=== PATIENT | male | born 1995 | race Caucasian/White ===

== ENCOUNTER 2021-10-20 23:21 | Emergency (ER) | payer SELFPAY ==
[~2021-10-20] VITALS: Ht 188 cm; Wt 90.9 kg
[~2021-10-20 23:21] MED LIST: SULF1TAB24 PO
[2021-10-21] VITALS: BP 138/88
--- NOTE | 2021-10-21 00:05 | PHYS DOC ---
Past Medical History Past Medical History: No Pertinent History (MILAGROS GREER APRN) Past Surgical History: No Surgical History (MILAGROS GREER APRN) Smoking Status: Never Smoker Alcohol Use: None Drug Use: None (MILAGROS GREER APRN) General Adult EDM: Chief Complaint: SORE THROAT HPI: HPI: Patient is a 26-year-old male who presents to the emergency department for 2-day history of sore throat, nonproductive cough and shortness of breath that started. Patient denies any treatment prior to arrival, fevers, loss of taste or smell or vomiting. Patient reports that his stepson was positive for strep. (MILAGROS GREER APRN) Review of Systems: Review of Systems: Constitutional: See HPI HENT: See HPI Respiratory: See HPI GI: See HPI (MILAGROS GREER APRN) Heart Score: C/O Chest Pain: N/A Risk Factors: Risk Factors: DM, Current or recent (<one month) smoker, HTN, HLP, family history of CAD, obesity. Risk Scores: Score 0 - 3: 2.5% MACE over next 6 weeks - Discharge Home Score 4 - 6: 20.3% MACE over next 6 weeks - Admit for Clinical Observation Score 7 - 10: 72.7% MACE over next 6 weeks - Early Invasive Strategies (MILAGROS GREER APRN) Allergies: Allergies: Allergies Coded Allergies Type Severity Reaction Last Updated Verified No Known Drug Allergies 10/01/18 No (MILAGROS GREER APRN) Physical Exam: PE: Constitutional: Well developed, well nourished, no acute distress, non-toxic appearance. [] HENT: Normocephalic, atraumatic, bilateral external ears normal, oropharynx moist, erythematous oropharynx, 2+ tonsillar enlargement without exudate, nasal drainage noted, uvula midline, no trismus, no phonation changes no oral exudates, nose normal. [] Eyes: PERRL, EOMI, conjunctiva normal, no discharge. [] Neck: Normal range of motion, no tenderness, no palpable cervical lymphadenopathy, supple, no stridor. [] Cardiovascular:Heart rate regular rhythm, no murmur [] Lungs & Thorax: Bilateral breath sounds clear to auscultation [] Abdomen: Bowel sounds normal, soft, no tenderness, no masses, no pulsatile masses. [] Skin: Warm, dry, no erythema, no rash. [] Back: Normal range of motion Extremities: No tenderness, no cyanosis, no clubbing, ROM intact, no edema. [] Neurologic: Alert and oriented X 3, normal motor function, normal sensory function, no focal deficits noted. [] Psychologic: Affect normal, judgement normal, mood normal. [] (MILAGROS GREER APRN) Current Patient Data: Labs: Laboratory Tests Test 10/21/21 00:06 Influenza Type A Antigen Negative Influenza Type B Antigen Negative Current Medications Medications (Trade) Dose Ordered Sig/Best Route PRN Reason Start Time Stop Time Status Last Admin Dose Admin Acetaminophen (Tylenol) 1,000 mg 1X ONCE PO 10/21/21 00:30 10/21/21 00:32 DC 10/21/21 00:23 (MILAGROS GREER APRN) EKG: EKG: [] (MILAGROS GREER APRN) Radiology/Procedures: Radiology/Procedures: [] (MILAGROS GREER APRN) Course & Med Decision Making: Course & Med Decision Making Pertinent Labs and Imaging studies reviewed. (See chart for details) [] Patient presents the emergency department for nonproductive cough, sore throat and shortness of breath that started 2 days ago. Patient's vital signs are stable and he is in no acute distress, he is not requiring any oxygen. Patient tested for strep, influenza and COVID-19. Patient treated with Tylenol. Patient's rapid influenza testing was negative. His rapid strep testing was negative. Patient was tested for COVID-19 and he will be notified of those results when they become available in approximately 2 days. Patient advised to self isolate until he receives those results. Due to patient's symptoms of shortness of breath, cough and tachycardia chest x-ray was performed. Awaiting chest x-ray completion and results at this time 0100. I discussed this case with supervising physician and he will assume patient care at this time due to shift change. (MILAGROS GREER APRN) Course & Med Decision Making Received patient in signout from [facility] with chest x-ray pending. Strep testing was negative. Influenza testing was negative. Covid PCR testing is pending. Fortunately his vital signs had been trending in the correct direction with decreasing his tachycardia. Wet read of chest x-ray did not show any infiltrates, however still pending official radiology read. I went to reassess the patient at approximately 2:15 AM, and he had eloped from the emergency department. He did not have IV access established. (EARNEST SINCLAIR MD) Dragon Disclaimer: Dragon Disclaimer: This electronic medical record was generated, in whole or in part, using a voice recognition dictation system. (MILAGROS GREER APRN) Departure Departure Impression: Primary Impression: Person under investigation for COVID-19 Disposition: 07 LEFT AWOL/ELOPED Condition: GOOD Referrals: FISH MARTINEZ MD (PCP) MILAGROS GREER APRN Oct 21, 2021 00:05 EARNEST SINCLAIR MD Oct 21, 2021 02:32
[2021-10-21] MEDS ORDERED: ACETAMINOPHEN 500 MG TABLET PO ONE (00:30)
[2021-10-21 00:41] LABS: INFLUENZA A PATIENT NEGATIVE (NEGATIVE); INFLUENZA B PATIENT NEGATIVE (NEGATIVE)
--- NOTE | 2021-10-21 05:30 | RAD ---
INDICATION: Reason: soa, tachy / Spl. Instructions: / History: COMPARISON: None. FINDINGS: Single view of chest obtained. Hypoexpanded examination. Mild patchy opacity at the left greater than right lung base. Cardiac silhouette upper limits of normal IMPRESSION: * Mild patchy opacity at left greater than right lung base which could be from atelectasis or mild i nfiltrate. Electronically signed by: Bj Lua MD (10/21/2021 5:28 AM) [id number]
--- NOTE | 2021-10-22 15:39 | NUR ---
IP: Attempted to contact pt concerning covid results. No answer, no voice mailbox set up.
--- NOTE | 2021-10-23 17:48 | NUR ---
IP: Attempted a second time to contact pt concerning covid results. Again no answer, no voicemail.
== END 2021-10-21 02:05 | disposition left against medical advice (07) ==
LOC: ER 23:21
DX: R05.9 Cough, unspecified (principal); R06.02 Shortness of breath; J02.9 Acute pharyngitis, unspecified; Z20.822 Contact with and (suspected) exposure to COVID-19
CPT/HCPCS: 71045; 87070; 87804; 87880; 99284; U0003; U0005